=== PATIENT | female | born 1995 | race Caucasian/White ===

== ENCOUNTER 2017-11-30 15:41 | Emergency (ER) | payer BC ==
--- NOTE | 2017-11-30 18:12 | RAD ---
Indication: Facial paresthesias. CT of the brain was performed without IV contrast. Ventricular structures are midline. No midline shift is noted. The extra-axial spaces are unremarkable. Mastoid air cells and paranasal sinuses are clear. IMPRESSION: No intracranial mass or hemorrhage is noted.
[2017-11-30 18:14] LABS: ABS Basophils 0 10^3/ul (0-0.2); ABS Eosinophils 0 10^3/ul (0-0.6); ABS Lymphocytes 1.6 10^3/ul (1.0-4.8); ABS Monocytes 0.5 10^3/ul (0-0.8); ABS Neutrophils 5.5 10^3/ul (1.5-7.7); ABS Nucleated RBC 0 10^3/ul; Eosinophil % 0.4 % (0-6); Hematocrit 40 % (35-47); Hemoglobin 13.2 g/dl (12.0-16.0); Lymphocyte % 21.3 % (25-47); Mean Corpuscular HGB Conc 33 g/dl (31-36); Mean Corpuscular Hemoglobin 28 pg (27-31); Mean Corpuscular Volume 85 fL (80-97); Mean Platelet Volume 9 um3 (7.4-10.4); Nucleated Red Blood Cells % 0.2; Platelet Count 246 10^3/ul (150-450); Red Blood Count 4.71 10^6/ul (4.0-5.4); Red Cell Distribution Width 15 % (10.5-15); White Blood Count 7.7 10^3/ul (3.5-10.8)
[2017-11-30] MEDS ORDERED: NS 0.9% 1000 ML* 1,000 ML IV ONE (18:16)
[2017-11-30 18:26] LABS: EGFR Non-African American 80.1 (>60)
[2017-11-30 19:54] LABS: Urine Appearance Clear; Urine Blood Negative (Negative); Urine Color Colorless; Urine Ketones Trace (Negative); Urine Protein Negative (Negative); Urine Specific Gravity 1.003 (1.010-1.030); Urine Urobilinogen Negative (Negative)
--- NOTE | 2017-11-30 21:26 | RAD ---
Indication: Weakness. Left-sided headaches. Sagittal and axial T1, axial T2, FLAIR, diffusion and susceptibility weighted images of the brain were obtained. Ventricular structures are midline. No midline shift is noted. The extraction spaces are unremarkable. There is no evidence of intracranial mass or hemorrhage. No other high or low signal lesions are identified. No restriction of diffusion is noted. Susceptibility weighted images demonstrates no susceptibility artifact. Mastoid air cells and paranasal sinuses are otherwise unremarkable. Cerebellopontine angles are unremarkable. IMPRESSION: No intracranial lesion is identified.
[2017-11-30 22:35] VITALS: BP 108/69
--- NOTE | 2017-12-01 13:06 | ED ---
Garima Wagner Julia, scribed for Jacques Frost MD on 11/30/17 at 1726 . Headache - HPI Summary HPI Summary: This patient is a 22 year old F presenting to [facility] accompanied by her father with a chief complaint of intermittent left temporal pressure headache for the past week, worsening yesterday with left lower facial and tongue tingling that is currently resolved. She states she now has tingling and numbness in the left hand beginning today. Patient denies weakness. She states she was ill in October 2017 and was diagnosed with migraines. Patient is right handed. Her LNMP was 2 weeks ago, without complaint. - History Of Current Complaint Chief Complaint: EDHeadache Stated Complaint: HEADACHE Time Seen by Provider: 11/30/17 17:18 Hx Obtained From: Patient Onset/Duration: Gradual Onset, Started weeks ago Initially Headache Was: Mild - "pressure" Timing: Intermittent, Lasting: Character: Pressure Location of Headache: Temporal - left Associated Signs And Symptoms: Other (Noted In Comments) - L facial and L hand tingling - Allergies/Home Medications Allergies/Adverse Reactions: Allergies Allergy/AdvReac Type Severity Reaction Status Date / Time No Known Allergies Allergy Verified 11/30/17 15:47 Home Medications: Home Medications Fexofenadine/Pseudoephedrine [[place]-D 24 Hour Tablet] 1 each PO DAILY [History Confirmed 11/30/17] Ibuprofen TAB* [Advil TAB*] 200 mg PO Q6H PRN 11/30/17 [History Confirmed ] PMH/Surg Hx/FS Hx/Imm Hx Sensory History: Reports: 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 Neurological History: Reports: Hx Migraine - Immunization History Date of Tetanus Vaccine: UTD Infectious Disease History: No Infectious Disease History: Denies: Traveled Outside the [place] in Last 30 Days - Family History Known Family History: Positive: Cardiac Disease - paternal grandfather, Other - brain tumor - paternal grandmother, hearing loss - mother - Social History Alcohol Use: None Hx Substance Use: No Substance Use Type: Reports: None Hx Tobacco Use: No Smoking Status (MU): Never Smoked Tobacco Review of Systems Negative: Fever Neurological: Other - tingling L face and hand Positive: Headache. Negative: Weakness All Other Systems Reviewed And Are Negative: Yes Physical Exam - Summary Physical Exam Summary: Appearance: The patient is well-nourished in no acute distress and in no acute pain. Skin: The skin is warm and dry and skin color reflects adequate perfusion. HEENT: The head is normocephalic and atraumatic. The pupils are equal and reactive. The conjunctivae are clear and without drainage. Nares are patent and without drainage. Mouth reveals moist mucous membranes and the throat is without erythema and exudate. The external ears are intact. The ear canals are patent and without drainage. The tympanic membranes are intact. Neck: the neck is supple with full range of motion and non-tender. There are no carotid bruits. There is no neck vein distension. Respiratory: Chest is non-tender. Lungs are clear to auscultation and breath sounds are symmetrical and equal. Cardiovascular: Heart is regular rate and rhythm. There is no murmur or rub auscultated. There is no peripheral edema and pulses are symmetrical and equal. Abdomen: The abdomen is soft and non-tender. There are normal bowel sounds heard in all four quadrants and there is no organomegaly palpated. Musculoskeletal: There is no back tenderness noted. Extremities are non-tender with full range of motion. There is good capillary refill. There is no peripheral edema or calf tenderness elicited. Neurological: Patient is alert and oriented to person, place and time. The patient has symmetrical motor strength in all four extremities. Cranial nerves are grossly intact. Deep tendon reflexes are symmetrical and equal in all four extremities. Psychiatric: The patient has an appropriate affect and does not exhibit any anxiety or depression. Triage Information Reviewed: Yes Vital Signs On Initial Exam: Initial Vitals Temp Pulse Resp BP Pulse Ox 98.6 F 70 14 110/66 100 11/30/17 15:44 11/30/17 15:44 11/30/17 15:44 11/30/17 15:44 11/30/17 15:44 Vital Signs Reviewed: Yes Diagnostics - Vital Signs Vital Signs Temp Pulse Resp BP Pulse Ox 11/30/17 15:44 98.6 F 70 14 110/66 100 - Laboratory Lab Results: Lab Results 11/30/17 11/30/17 11/30/17 Range/Units 17:53 17:53 17:53 WBC 7.7 (3.5-10.8) 10^3/ul RBC 4.71 (4.0-5.4) 10^6/ul Hgb 13.2 (12.0-16.0) g/dl Hct 40 (35-47) % MCV 85 (80-97) fL MCH 28 (27-31) pg MCHC 33 (31-36) g/dl RDW 15 (10.5-15) % Plt Count 246 (150-450) 10^3/ul MPV 9 (7.4-10.4) um3 Neut % (Auto) 71.5 (38-83) % Lymph % (Auto) 21.3 L (25-47) % [place] % (Auto) 6.3 (0-7) % Eos % (Auto) 0.4 (0-6) % Baso % (Auto) 0.5 (0-2) % Absolute Neuts (auto) 5.5 (1.5-7.7) 10^3/ul Absolute Lymphs (auto) 1.6 (1.0-4.8) 10^3/ul Absolute Monos (auto) 0.5 (0-0.8) 10^3/ul Absolute Eos (auto) 0 (0-0.6) 10^3/ul Absolute Basos (auto) 0 (0-0.2) 10^3/ul Absolute Nucleated RBC 0 10^3/ul Nucleated RBC % 0.2 Sodium 136 (133-145) mmol/L Potassium 3.5 (3.5-5.0) mmol/L Chloride 101 (101-111) mmol/L Carbon Dioxide 28 (22-32) mmol/L Anion Gap 7 (2-11) mmol/L BUN 11 (6-24) mg/dL Creatinine 0.89 (0.51-0.95) mg/dL Est GFR ( Amer) 103.0 (>60) Est GFR (Non-Af Amer) 80.1 (>60) BUN/Creatinine Ratio 12.4 (8-20) Glucose 114 H (70-100) mg/dL Lactic Acid 0.7 (0.5-2.0) mmol/L Calcium 10.1 (8.6-10.3) mg/dL Total Bilirubin 0.50 (0.2-1.0) mg/dL AST 18 (13-39) U/L ALT 10 (7-52) U/L Alkaline Phosphatase 43 (34-104) U/L Troponin I 0.00 (<0.04) ng/mL Total Protein 8.4 (6.4-8.9) g/dL Albumin 5.1 (3.2-5.2) g/dL Globulin 3.3 (2-4) g/dL Albumin/Globulin Ratio 1.5 (1-3) TSH 1.51 (0.34-5.60) mcIU/mL Beta HCG, Quant < 0.60 mIU/mL Urine Color Urine Appearance Urine pH (5-9) Ur Specific Newman (1.010-1.030) Urine Protein (Negative) Urine Ketones (Negative) Urine Blood (Negative) Urine Nitrate (Negative) Urine Bilirubin (Negative) Urine Urobilinogen (Negative) Ur Leukocyte Esterase (Negative) Urine Glucose (Negative) 11/30/17 Range/Units 19:45 WBC (3.5-10.8) 10^3/ul RBC (4.0-5.4) 10^6/ul Hgb (12.0-16.0) g/dl Hct (35-47) % MCV (80-97) fL MCH (27-31) pg MCHC (31-36) g/dl RDW (10.5-15) % Plt Count (150-450) 10^3/ul MPV (7.4-10.4) um3 Neut % (Auto) (38-83) % Lymph % (Auto) (25-47) % [place] % (Auto) (0-7) % Eos % (Auto) (0-6) % Baso % (Auto) (0-2) % Absolute Neuts (auto) (1.5-7.7) 10^3/ul Absolute Lymphs (auto) (1.0-4.8) 10^3/ul Absolute Monos (auto) (0-0.8) 10^3/ul Absolute Eos (auto) (0-0.6) 10^3/ul Absolute Basos (auto) (0-0.2) 10^3/ul Absolute Nucleated RBC 10^3/ul Nucleated RBC % Sodium (133-145) mmol/L Potassium (3.5-5.0) mmol/L Chloride (101-111) mmol/L Carbon Dioxide (22-32) mmol/L Anion Gap (2-11) mmol/L BUN (6-24) mg/dL Creatinine (0.51-0.95) mg/dL Est GFR ( Amer) (>60) Est GFR (Non-Af Amer) (>60) BUN/Creatinine Ratio (8-20) Glucose (70-100) mg/dL Lactic Acid (0.5-2.0) mmol/L Calcium (8.6-10.3) mg/dL Total Bilirubin (0.2-1.0) mg/dL AST (13-39) U/L ALT (7-52) U/L Alkaline Phosphatase (34-104) U/L Troponin I (<0.04) ng/mL Total Protein (6.4-8.9) g/dL Albumin (3.2-5.2) g/dL Globulin (2-4) g/dL Albumin/Globulin Ratio (1-3) TSH (0.34-5.60) mcIU/mL Beta HCG, Quant mIU/mL Urine Color Colorless Urine Appearance Clear Urine pH 6.0 (5-9) Ur Specific Newman 1.003 L (1.010-1.030) Urine Protein Negative (Negative) Urine Ketones Trace A (Negative) Urine Blood Negative (Negative) Urine Nitrate Negative (Negative) Urine Bilirubin Negative (Negative) Urine Urobilinogen Negative (Negative) Ur Leukocyte Esterase Negative (Negative) Urine Glucose Negative (Negative) Result Diagrams: 11/30/17 17:53 11/30/17 17:53 Lab Statement: Any lab studies that have been ordered have been reviewed, and results considered in the medical decision making process. - Radiology Brain MRI Radiology Interpretation Completed By: Radiologist - No intracranial lesion is identified. ED Physician has reviewed this report. - CT Brain CT Interpretation Completed By: Radiologist - No intracranial mass or hemorrhage is noted. ED Physician has reviewed this report. - EKG 1833 Cardiac Rate: NL - 77 BPM EKG Rhythm: Sinus Rhythm Headache Course/Dx - Course Course Of Treatment: Ms. Clements presented with an atypical MONTANEZ. Dr. Khan was consulted and recommended an MRI which was negative and he agreed to follow her as an outpatient. This may be atypical migraine although she really has no MONTANEZ. - Diagnoses Provider Diagnoses: Headache, Arm paresthesia, left - Physician Notifications Discussed Care Of Patient With: Duran Khan - Neurology Time Discussed With Above Provider: 17:39 Instructed by Provider To: Other - recomends an MRI Discharge - Discharge Plan Condition: Stable Disposition: HOME Patient Education Materials: Acute Headache (ED) Referrals: Duran Khan MD [Medical Doctor] - 4-7 Days (Follow up with Dr. Khan this week.) [facility] - [place] [Primary Care Provider] - The documentation as recorded by the Garima fitch Julia accurately reflects the service I personally performed and the decisions made by me, Jacques Frost MD.
== END 2017-11-30 22:34 | disposition home or self-care (01) ==
LOC: ED 15:41 → MEDTELE 19:18 → UNDOADMOB 19:18
DX: R51 Headache (principal); R20.2 Paresthesia of skin
CPT/HCPCS: 36415; 70450; 70551; 80053; 81003; 83605; 84443; 84484; 84702; 85025; 93005; 96360; 99284